=== PATIENT | female | born 1980 | race Two or more races ===

== ENCOUNTER 2020-02-16 06:48 | Day surgery (SDC) | payer OTHER ==
[~2020-02-16 06:48] MED LIST: GABAPENTIN100 M2 PO; HORIZANT300 MG PO; LOSARTAN POTASS25 MG PO; TAMOXIFEN CITRA20 MG PO
== END 2020-02-16 16:30 | disposition home or self-care (01) ==
LOC: CIR.AMB 06:48
PROVIDERS: ATTEND Orthopaedic Surgery Hand Surgery
DX: G56.22 Lesion of ulnar nerve, left upper limb (principal); Z20.828 Contact with and (suspected) exposure to other viral communicable diseases